=== PATIENT | male | born 1970 | race American Indian/Alaskan Native ===

== ENCOUNTER 2017-10-05 12:59 | Emergency (ER) | payer MEDICAID ==
[2017-10-05] MEDS ORDERED: BOOSTRIX IM ONE (14:32)
--- NOTE | 2017-10-05 14:39 | Emergency Department Report ---
HPI - General Time Seen by Provider: 10/05/17 14:20 - HPI HPI: Room 3 The patient is a 47-year-old male presenting with a chief complaint of fall and facial injury. [facility] Staff reports that they heard the patient fall and found him with an injury to his nose. The patient was sent to the ED for evaluation. Patient acknowledged neck pain to nursing. Patient does not communicate verbally but always shakes or nods his head Location: [See above] Duration: [See above] Quality: Unknown Severity: Moderate Modifying factors: [see above] Context: [see above] Mode of transportation: [not driving] ED Past Medical Hx - Past Medical History Hx Psychiatric Treatment: Yes (schizophrenia, anxiety) Additional medical history: Cardiac arrest, anoxic brain injury, encephalopathy , cognitive communication deficit - Family History Family history: no significant - Social History Smoking Status: Never Smoker Substance Use Type: None - Medications Home Medications: Home Medications Medication Instructions Recorded Confirmed Last Taken Type traMADol [Ultram] 50 mg PO Q6HR PRN #10 tablet 10/05/17 Unknown Rx ED Review of Systems ROS: Stated complaint: FALL/NOSE LACERATION Other details as noted in HPI Comment: Unobtainable due to pts medical conditions Physical Exam - Physical Exam Physical Exam: GENERAL: The patient is well-developed well-nourished male sitting on stretcher with dressing to nose not appear to be in acute distress. [] HEENT: Normocephalic. Approximately 1 cm tangential/shearing curvilinear laceration to the left naris. Extraocular motions are intact. Patient has moist mucous membranes. NECK: Supple. No axial step offs CHEST/LUNGS: Clear to auscultation. There is no respiratory distress noted. HEART/CARDIOVASCULAR: Regular. There is no tachycardia. There is no gallop rub or murmur. ABDOMEN: Abdomen is soft, nontender. Patient has normal bowel sounds. There is no abdominal distention. SKIN: There is no rash. There is no edema. There is no diaphoresis. NEURO: The patient is awake. The patient has cognitive communication deficits so they does not respond verbally. gait. MUSCULOSKELETAL: There is no limitation range of motion. - Laceration /Wound Repair Left Nose Wound Location: face Wound Length (cm): 1 Wound's Depth, Shape: irregular Wound Explored: clean Betadine Prep?: No Wound Repaired With: Dermabond Sterile Dressing Applied?: No Progress: Wound cleaned and prepped with hydrogen peroxide ED Medical Decision Making - Radiology Data Radiology results: report reviewed (CT head, CT cervical spine, CT facial bones) , image reviewed (CT head, CT cervical spine, CT facial bones) [address] [address] Cat Scan Report Signed Patient: TRUPTI LINCOLN MR#: [id number] : 1970 Acct:[id number] Age/Sex: 47 / M ADM Date: 10/05/17 Loc: ED Attending Dr: Ordering Physician: TYSHAWN SAENZ MD Date of Service: 10/05/17 Procedure(s): CT head/brain wo con Accession Number(s): [id number] cc: TYSHAWN SAENZ MD FINAL REPORT EXAM: CT HEAD/BRAIN WO CON HISTORY: head injury after fall TECHNIQUE: Routine axial imaging was obtained of the brain without IV contrast. There are no previous studies available for comparison. FINDINGS: There is volume loss in the posterior fossa. There is no evidence of acute stroke or hemorrhage. The ventricular system is symmetric in size. There is no evidence of skull fracture or scalp injury. The visualized sinuses are clear. The mastoid air cells are well pneumatized. IMPRESSION: Nonspecific volume loss in the posterior fossa. No acute intracranial process. Transcribed By: RB Dictated By: TRUPTI DOMINGO MD Electronically Authenticated By: TRUPTI DOMINGO MD Signed Date/Time: 10/05/171533 DD/ 33 TD/TT: 10/05/[address] [address] Cat Scan Report Signed Patient: TRUPTI LINCOLN MR#: [id number] : 1970 Acct:[id number] Age/Sex: 47 / M ADM Date: 10/05/17 Loc: ED Attending Dr: Ordering Physician: TYSHAWN SAENZ MD Date of Service: 10/05/17 Procedure(s): CT facial bones wo con Accession Number(s): [id number] cc: TYSHAWN SAENZ MD FINAL REPORT EXAM: CT FACIAL BONES WO CON HISTORY: head injury after fall TECHNIQUE: Routine axial imaging was obtained of the facial bones without IV contrast with sagittal and coronal reconstructions. FINDINGS: The orbital rims and floors appear intact. The nasal bones and zygomatic arches appear intact. The mandible shows no evidence of acute injury. The visualized sinuses are clear. The intraorbital structures do not show any acute changes. The soft tissues otherwise are unremarkable. IMPRESSION: Within normal limits. Transcribed By: DESMOND Dictated By: TRUPTI DOMINGO MD Electronically Authenticated By: TRUPTI DOMINGO MD Signed Date/Time: 10/05/171531 DD/ 31 TD/TT: 10/05/171531 [facility] [address] [address] Cat Scan Report Signed Patient: TRUTPI LINCOLN MR#: [id number] : 1970 Acct:[id number] Age/Sex: 47 / M ADM Date: 10/05/17 Loc: ED Attending Dr: Ordering Physician: TYSHAWN SAENZ MD Date of Service: 10/05/17 Procedure(s): CT cervical spine wo con Accession Number(s): [id number] cc: TYSHAWN SAENZ MD FINAL REPORT PROCEDURE: CT CERVICAL SPINE WO CON TECHNIQUE: Computerized tomography of the cervical spine was performed from the skull base to T1 without contrast material. HISTORY: pain after fall COMPARISON: No prior studies are available for comparison. FINDINGS: There are degenerative disc changes predominantly from C3-4 through C6-7, with disc space narrowing and osteophyte formation. No acute fracture or subluxation is seen. IMPRESSION: No acute fracture or subluxation is identified. Transcribed By: [facility] Dictated By: AIME PEREZ M.D. Electronically Authenticated By: AIME PEREZ M.D. Signed Date/Time: 10/05/171637 DD/ 37 TD/TT: 10/05/171637 - Differential Diagnosis closed head injury, ICH, cervical fracture, nose laceration Critical care attestation.: If time is entered above; I have spent that time in minutes in the direct care of this critically ill patient, excluding procedure time. ED Disposition Clinical Impression: Closed head injury, Cervical strain, acute, Laceration of nose Disposition: -01 TO HOME OR SELFCARE Is pt being admited?: No Does the pt Need Aspirin: No Condition: Stable Instructions: Skin Adhesive Care (ED), Laceration (ED) Additional Instructions: Return to the emergency department immediately should you develop worsening symptoms, fever, inability to tolerate food or liquid or any other concerns. Prescriptions: traMADol [Ultram] 50 mg PO Q6HR PRN #10 tablet PRN Reason: Pain Referrals: JUAN BA MD [Primary Care Provider] - 3-5 Days Time of Disposition: 17:21
--- NOTE | 2017-10-05 15:37 | Cat Scan Report ---
FINAL REPORT EXAM: CT FACIAL BONES WO CON HISTORY: head injury after fall TECHNIQUE: Routine axial imaging was obtained of the facial bones without IV contrast with sagittal and coronal reconstructions. FINDINGS: The orbital rims and floors appear intact. The nasal bones and zygomatic arches appear intact. The mandible shows no evidence of acute injury. The visualized sinuses are clear. The intraorbital structures do not show any acute changes. The soft tissues otherwise are unremarkable. IMPRESSION: Within normal limits.
--- NOTE | 2017-10-05 15:39 | Cat Scan Report ---
FINAL REPORT EXAM: CT HEAD/BRAIN WO CON HISTORY: head injury after fall TECHNIQUE: Routine axial imaging was obtained of the brain without IV contrast. There are no previous studies available for comparison. FINDINGS: There is volume loss in the posterior fossa. There is no evidence of acute stroke or hemorrhage. The ventricular system is symmetric in size. There is no evidence of skull fracture or scalp injury. The visualized sinuses are clear. The mastoid air cells are well pneumatized. IMPRESSION: Nonspecific volume loss in the posterior fossa. No acute intracranial process.
[2017-10-05] MEDS ORDERED: HYDROGEN PEROXIDE ONE (16:09)
--- NOTE | 2017-10-05 16:44 | Cat Scan Report ---
FINAL REPORT PROCEDURE: CT CERVICAL SPINE WO CON TECHNIQUE: Computerized tomography of the cervical spine was performed from the skull base to T1 without contrast material. HISTORY: pain after fall COMPARISON: No prior studies are available for comparison. FINDINGS: There are degenerative disc changes predominantly from C3-4 through C6-7, with disc space narrowing and osteophyte formation. No acute fracture or subluxation is seen. IMPRESSION: No acute fracture or subluxation is identified.
[2017-10-05 18:55] VITALS: BP 165/104
[2017-10-05] MEDS ORDERED: HYDROGEN PEROXIDE TP ONE (18:55)
== END 2017-10-05 19:39 | disposition home or self-care (01) ==
LOC: ED 12:59
DX: S01.21XA Laceration without foreign body of nose, initial encounter (principal); S16.1XXA Strain of muscle, fascia and tendon at neck level, initial encounter; S09.8XXA Other specified injuries of head, initial encounter; F20.9 Schizophrenia, unspecified; F41.9 Anxiety disorder, unspecified; W17.89XA Other fall from one level to another, initial encounter; Y93.89 Activity, other specified; Y92.89 Other specified places as the place of occurrence of the external cause; Y99.8 Other external cause status
CPT/HCPCS: 70450; 70486; 72125; 90471; 90715

== ENCOUNTER 2019-07-24 19:47 | Emergency (ER) | payer MEDICAID ==
[2019-07-24 21:22] LABS: Basophils # (Auto) 0.1 K/mm3 (0.0-0.1); Basophils % (Auto) 0.5 % (0.0-1.8); Eosinophils # (Auto) 0.2 K/mm3 (0.0-0.4); Eosinophils % (Auto) 1.6 % (0.0-4.3); Lymphocytes # (Auto) 2.7 K/mm3 (1.2-5.4); Lymphocytes % (Auto) 20.1 % (13.4-35.0); Mean Corpuscular HGB Conc 31 % (32-34); Mean Corpuscular Volume 73 fl (84-94); Monocytes # (Auto) 1.3 K/mm3 (0.0-0.8); Monocytes % (Auto) 9.7 % (0.0-7.3); Platelet Count 339 K/mm3 (140-440); Red Blood Count 5.92 M/mm3 (3.65-5.03); Red Cell Distribution Width 14.9 % (13.2-15.2)
[2019-07-24 21:25] LABS: Hematocrit 43.4 % (35.5-45.6); Hemoglobin 13.3 gm/dl (11.8-15.2)
[2019-07-24 21:58] LABS: Alanine Aminotransferase 29 units/L (7-56); Albumin 3.6 g/dL (3.9-5); BUN/Creatinine Ratio 14; Blood Urea Nitrogen 14 mg/dL (9-20)
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
[2019-07-25 19:37] LABS: Amphetamine Screen,Urine PRESUMPTIVE NEGATIVE; Benzodiazepines Screen,Urine PRESUMPTIVE NEGATIVE; Cannabinoid Screen,Urine PRESUMPTIVE NEGATIVE; Cocaine Screen,Urine PRESUMPTIVE NEGATIVE; Methadone Screen,Urine PRESUMPTIVE NEGATIVE; Opiate Screen,Urine PRESUMPTIVE NEGATIVE
[2019-07-25] MEDS ORDERED: amLODIPine 5 MG TAB PO SCH (23:20)
[2019-07-26 12:31] VITALS: BP 146/108
== END 2019-07-26 15:02 | disposition home or self-care (01) ==
LOC: ED 19:47
DX: F20.9 Schizophrenia, unspecified (principal); I10 Essential (primary) hypertension; I25.2 Old myocardial infarction; I46.9 Cardiac arrest, cause unspecified; Z79.899 Other long term (current) drug therapy
CPT/HCPCS: 36415; 80053; 80307; 80320; 85025; G0480

== ENCOUNTER 2020-12-21 19:52 | Emergency (ER) | payer MEDICAID ==
[2020-12-21] MEDS ORDERED: ACETAMINOPHEN 325 MG TAB PO ONE (20:42)
[2020-12-21] MEDS ORDERED: SODIUM CHLORIDE 0.9% 500 ML 500 ML IV ONE (20:44)
--- NOTE | 2020-12-21 20:46 | Emergency Department Report ---
ED General Adult HPI - General Chief complaint: Fall Stated complaint: patient does not speak to me PUI?: No Time Seen by Provider: 12/21/20 20:04 Source: patient, EMS ( EMS documentation not available at time of chart di ctation ), RN notes reviewed, old records reviewed Mode of arrival: Stretcher Limitations: Other (The patient is awake. The patient follows commands. The patient is nonverbal) - History of Present Illness Initial comments: This is a 50-year-old gentleman. His primary care doctor is Dr. Juan Ba. He is currently a resident of [facility]. His past medical history is complex, including aphasia, history of COVID-19, nontraumatic subarachnoid hemorrhage, lack of coordination, stroke, dyskinesia, schizophrenia, DVT, hypothyroidism, depression, generalized weakness, cognitive communication deficit, anoxic brain injury, cardiac arrest, and anemia. The patient is nonverbal, but awake, follows commands. History obtained by speaking to nurse Beba León at patient's care facility; [phone] She indicates that the patient was found on the floor, via a presumed unwitnessed fall. This was at 630. The patient was last seen normal at 4:15 PM. The patient typically stays in bed. As per Ms. Luossa, she denies fever, change in mental status, nausea, vomiting, diarrhea, or new/different medications. He was sent to the emergency room for medical clearance for unwitnessed fall. She states that the patient is his baseline. The patient himself points to his left neck. He indicates through sign language that he is having pain there. He is not able to tell me if he is having additional pain. He is not able to describe the qualitative nature of his pain, aggravating fa ctors, relieving factors, or radiation factors. -: This evening Location: neck Radiation: other Quality: other Consistency: other Improves with: other Worsens with: other Associated Symptoms: other - Related Data Previous Rx's Medication Instructions Recorded Last Taken Type Potassium Chloride 20 meq PO QDAY #15 packet 12/21/20 Unknown Rx Allergies Allergy/AdvReac Type Severity Reaction Status Date / Time No Known Allergies Allergy Verified 12/21/20 20:20 ED Review of Systems ROS: Stated complaint: FALL Other details as noted in HPI Comment: Unobtainable due to pts medical conditions (Review of systems as per nurse Beba Simpsonoby) Constitutional: denies: fever Eyes: denies: eye discharge ENT: denies: epistaxis Respiratory: denies: cough Gastrointestinal: denies: nausea, vomiting, diarrhea Genitourinary: denies: frequency Hematological/Lymphatic: denies: easy bleeding ED Past Medical Hx - Past Medical History Previous Medical History?: Yes Hx Hypertension: Yes Hx Heart Attack/AMI: Yes Hx Deep Vein Thrombosis: Yes Hx Psychiatric Treatment: Yes (schizophrenia, anxiety) Additional medical history: Cardiac arrest, anoxic brain injury, encephalopathy, cognitive communication deficit - Surgical History Past Surgical History?: No Additional Surgical History: unobtainable - Social History Smoking Status: Never Smoker - Medications Home Medications: Home Medications Medication Instructions Recorded Confirmed Last Taken Type Potassium Chloride 20 meq PO QDAY #15 packet 12/21/20 Unknown Rx ED Physical Exam - General Limitations: Other (The patient is awake. The patient is nonverbal. The patient moves 4 extremities.) General appearance: in no apparent distress - Head Head exam: Present: atraumatic, normocephalic - Eye Eye exam: Present: normal appearance, PERRL, EOMI. Absent: nystagmus - ENT ENT exam: Present: normal exam, normal orophraynx, mucous membranes moist, TM's normal bilaterally, normal external ear exam - Neck Neck exam: Present: normal inspection, full ROM, other (There is left-sided muscular paracervical tenderness) - Respiratory Respiratory exam: Present: normal lung sounds bilaterally. Absent: respiratory distress, wheezes, rales, rhonchi, stridor, decreased breath sounds - Cardiovascular Cardiovascular Exam: Present: normal rhythm, tachycardia, normal heart sounds. Absent: bradycardia, irregular rhythm, systolic murmur, diastolic murmur, rubs, gallop - GI/Abdominal GI/Abdominal exam: Present: soft. Absent: distended, tenderness, guarding, rebound, rigid, pulsatile mass - Rectal Rectal exam: Present: deferred - Extremities Exam Extremities exam: Present: normal inspection, full ROM, other (2+ pulses noted in the bilateral upper and lower extremities. There is no palpable cord. negative Homans sign. Muscular compartments are soft. The pelvis is stable.). Absent: pedal edema, calf tenderness - Back Exam Back exam: Present: normal inspection, paraspinal tenderness. Absent: te nderness, CVA tenderness (R), CVA tenderness (L), vertebral tenderness - Neurological Exam Neurological exam: Present: other (The patient is awake. The patient follows commands. The patient moves 4 extremities. There is no facial droop.) - Skin Skin exam: Present: warm, dry, intact, normal color. Absent: rash ED Course Vital Signs 12/21/20 12/21/20 12/21/20 20:10 20:16 20:46 Temperature 98.2 F Pulse Rate 101 H Respiratory 14 19 24 Rate Blood Pressure 128/81 126/87 Blood Pressure 128/81 [Left] O2 Sat by Pulse 94 95 95 Oximetry 12/21/20 12/21/20 12/21/20 21:00 21:16 21:29 Temperature Pulse Rate 101 H Respiratory 17 19 18 Rate Blood Pressure 132/90 132/90 Blood Pressure [Left] O2 Sat by Pulse 95 96 Oximetry 12/21/20 12/21/20 21:30 22:00 Temperature Pulse Rate 98 H 86 Respiratory 15 15 Rate Blood Pressure 120/96 101/71 Blood Pressure [Left] O2 Sat by Pulse 95 97 Oximetry - Reevaluation(s) Reevaluation #1: 12/21/20 21:33 Differential diagnosis, including but not limited to: Closed head injury, cervical spine injury, anemia, pneumonia, , electrolyte derangement, medical clearance 50-year-old gentleman who is awake, moving 4 extremities, protecting his airway, minimally tachycardic, although now resolved. Laboratory studies so far unremarkable, urinalysis pending, noncontrast CT scan of the brain and cervical spine pending. While I was initially evaluating this patient, he was tachycardic, O2 sat 94%. However, with deep inspiration, this corrects to 98%. He is somewhat obese, so I suspect a component of probable obesity hypoventilation syndrome and/or obstructive sleep apnea. He does not appear to be acutely decompensated from this perspective however. Reassess after imaging studies have resulted. 12/21/20 22:41 Patient sitting comfortably in stretcher. X-ray of the chest negative for acute findings. X-ray of the pelvis negative for acute findings. O2 sat 98%. Heart rate 95 bpm. The patient denies urinary symptoms. I specifically asked the patient if he was having any burning or pain when he peed, painful urination, testicular pain, or urinary discomfort. He shook his head no. TSH reviewed and appreciated. Defer to his primary care doctor to follow this up. CT scan brain and cervical spine pending. 12/21/20 22:42 12/21/20 23:11 Vital signs have normalized. CT scan of the brain and cervical spine negative for acute findings. He remains awake and is moving 4 extremities. He is in no acute distress. Discharge back to his alf. ED Medical Decision Making - Lab Data Result diagrams: 12/21/20 20:54 12/21/20 20:54 Vital Signs 12/21/20 12/21/20 20:10 21:29 Temperature 98.2 F Pulse Rate 101 H Respiratory 14 18 Rate Blood Pressure 128/81 [Left] O2 Sat by Pulse 94 Oximetry Lab Results 12/21/20 12/21/20 12/21/20 Range/Units 20:54 20:54 20:54 WBC 10.4 (4.5-11.0) K/mm3 RBC 5.84 H (3.65-5.03) M/mm3 Hgb 13.9 (11.8-15.2) gm/dl Hct 43.0 (35.5-45.6) % MCV 74 L (84-94) fl MCH 24 L (28-32) pg MCHC 32 (32-34) % RDW 14.8 (13.2-15.2) % Plt Count 215 (140-440) K/mm3 Lymph % (Auto) 27.2 (13.4-35.0) % Cotton % (Auto) 13.7 H (0.0-7.3) % Eos % (Auto) 2.7 (0.0-4.3) % Baso % (Auto) 0.5 (0.0-1.8) % Lymph # (Auto) 2.8 (1.2-5.4) K/mm3 Cotton # (Auto) 1.4 H (0.0-0.8) K/mm3 Eos # (Auto) 0.3 (0.0-0.4) K/mm3 Baso # (Auto) 0.1 (0.0-0.1) K/mm3 Seg Neutrophils % 55.9 (40.0-70.0) % Seg Neutrophils # 5.8 (1.8-7.7) K/mm3 PT 13.1 (12.2-14.9) Sec. INR 0.93 (0.87-1.13) D-Dimer 161.27 (0-234) ng/mlDDU Sodium 138 (137-145) mmol/L Potassium 3.4 L (3.6-5.0) mmol/L Chloride 101.7 (98-107) mmol/L Carbon Dioxide 25 (22-30) mmol/L Anion Gap 15 mmol/L BUN 14 (9-20) mg/dL Creatinine 1.1 (0.8-1.3) mg/dL Estimated GFR > 60 ml/min BUN/Creatinine Ratio 13 % Glucose 110 H (75-100) mg/dL Calcium 9.5 (8.4-10.2) mg/dL Magnesium 2.10 (1.7-2.3) mg/dL Total Creatine Kinase 218 H (55-170) units/L Acetaminophen (10.0-30.0) ug/mL 12/21/20 Range/Units 20:54 WBC (4.5-11.0) K/mm3 RBC (3.65-5.03) M/mm3 Hgb (11.8-15.2) gm/dl Hct (35.5-45.6) % MCV (84-94) fl MCH (28-32) pg MCHC (32-34) % RDW (13.2-15.2) % Plt Count (140-440) K/mm3 Lymph % (Auto) (13.4-35.0) % Cotton % (Auto) (0.0-7.3) % Eos % (Auto) (0.0-4.3) % Baso % (Auto) (0.0-1.8) % Lymph # (Auto) (1.2-5.4) K/mm3 Cotton # (Auto) (0.0-0.8) K/mm3 Eos # (Auto) (0.0-0.4) K/mm3 Baso # (Auto) (0.0-0.1) K/mm3 Seg Neutrophils % (40.0-70.0) % Seg Neutrophils # (1.8-7.7) K/mm3 PT (12.2-14.9) Sec. INR (0.87-1.13) D-Dimer (0-234) ng/mlDDU Sodium (137-145) mmol/L Potassium (3.6-5.0) mmol/L Chloride (98-107) mmol/L Carbon Dioxide (22-30) mmol/L Anion Gap mmol/L BUN (9-20) mg/dL Creatinine (0.8-1.3) mg/dL Estimated GFR ml/min BUN/Creatinine Ratio % Glucose (75-100) mg/dL Calcium (8.4-10.2) mg/dL Magnesium (1.7-2.3) mg/dL Total Creatine Kinase (55-170) units/L Acetaminophen 5.0 L (10.0-30.0) ug/mL Vital Signs 12/21/20 12/21/20 12/21/20 20:10 20:16 20:46 Temperature 98.2 F Pulse Rate 101 H Respiratory 14 19 24 Rate Blood Pressure 128/81 126/87 Blood Pressure 128/81 [Left] O2 Sat by Pulse 94 95 95 Oximetry 12/21/20 12/21/20 12/21/20 21:00 21:16 21:29 Temperature Pulse Rate 101 H Respiratory 17 19 18 Rate Blood Pressure 132/90 132/90 Blood Pressure [Left] O2 Sat by Pulse 95 96 Oximetry 12/21/20 12/21/20 21:30 22:00 Temperature Pulse Rate 98 H 86 Respiratory 15 15 Rate Blood Pressure 120/96 101/71 Blood Pressure [Left] O2 Sat by Pulse 95 97 Oximetry - EKG Data -: EKG Interpreted by Me EKG shows normal: sinus rhythm Rate: tachycardia - EKG Data When compared to previous EKG there are: previous EKG unavailable 12/21/20 21:32 EKG interpreted at 21: 11 Sinus rhythm, 94 bpm. Normal axis. QTC 463 ms. Poor R progression. Motion artifact. Not a STEMI. - Radiology Data Radiology results: pending, report reviewed, image reviewed interpreted by me: 1 view x-ray of the chest, interpreted by myself, negative for acute findings. X-ray of the pelvis, interpreted by myself, negative for acute findings. CHEST 1 VIEW, 12/21/2020 8:19 PM CLINICAL INFORMATION/INDICATION: Fall. Trauma. COMPARISON: None. FINDINGS: SUPPORT DEVICES: None. HEART: The cardiac silhouette is normal in size. LUNGS/PLEURA: The lungs are clear of focal airspace disease or significant pleural effusion. ADDITIONAL FINDINGS: No additional acute findings. IMPRESSION: 1. No evidence of acute cardiopulmonary process. Signer Name: Mónica Mooney MD Signed: 12/21/2020 8:40 PM Workstation Name: [id number] EXAMINATION: Pelvic radiograph, one view, 12/21/2020 CLINICAL INFORMATION: Trauma. Fall. COMPARISON: None. FINDINGS: There is no evidence of displaced bony fracture of the pelvis on today's single view. Signer Name: Mónica Mooney MD Signed: 12/21/2020 8:52 PM Workstation Name: [id number] NDICATION: Fall with a closed head injury, now with neck pain. TECHNIQUE: CT head and cervical spine without contrast. All CT scans at this location are performed using CT dose reduction for ALARA by means of automated exposure control. COMPARISON: 10/05/2017 FINDINGS: HEAD: Intracranial: Baez-white matter differentiation is maintained. No intracranial hemorrhage. No extra axial collection.. No hydrocephalus. No herniation. Sinuses: Paranasal sinuses and mastoid air cells are essentially clear. Orbits: Globes are intact Calvarium: No acute fracture. CERVICAL: Alignment: Normal alignment. Vertebrae: No fracture. No acute vertebral body height loss. C1 and C2 are congruent. Atlantooccipital joint is maintained. Spondylolysis: Mild multilevel cervical spondylosis. Soft tissues: No prevertebral soft tissue thickening. Additional findings: No significant additional findings. IMPRESSION: 1. No acute intracranial abnormality. 2.No cervical spine fracture. Signer Name: Ramón Vega MD Signed: 12/21/2020 9:39 PM Critical care attestation.: If time is entered above; I have spent that time in minutes in the direct care of this critically ill patient, excluding procedure time. ED Disposition Clinical Impression: Fall, Cognitive communication deficit, Encounter for medical screening examination, Hypokalemia, Neck pain Disposition: DC/TX-70 ANOTHER TYPE HLTHCARE Is pt being admited?: No Does the pt Need Aspirin: No Condition: Good Additional Instructions: The patient was not found to have an emergent medical condition today that would preclude discharge back to his nursing care facility. Have your primary care doctor contact the medical records department to obtain copies of laboratory studies, radiology studies, and to follow-up on nonemergent incidental abnormal findings. Recommend that patients be monitored in such a fashion as to prevent future falls. Recommend initiating fall precautions for this patient. Please return to the emergency room right away with new pain, worsened pain, migration of pain, vomiting, change in mental status, confusion, inability to tolerate liquid feeds, new, worsened or different symptoms not present on the initial emergency room evaluation. We do recommend follow-up with your primary care doctor within the next 3 to 5 days for repeat checkup and evaluation. Prescriptions: Potassium Chloride 20 meq PO QDAY #15 packet Referrals: JUAN BA MD [Staff Physician] - 3-5 Days Time of Disposition: 23:12 (Discharge back to patient's nursing)
[2020-12-21 21:19] LABS: Basophils # (Auto) 0.1 K/mm3 (0.0-0.1); Basophils % (Auto) 0.5 % (0.0-1.8); Eosinophils # (Auto) 0.3 K/mm3 (0.0-0.4); Eosinophils % (Auto) 2.7 % (0.0-4.3); Hemoglobin 13.9 gm/dl (11.8-15.2); Lymphocytes # (Auto) 2.8 K/mm3 (1.2-5.4); Lymphocytes % (Auto) 27.2 % (13.4-35.0); Mean Corpuscular HGB Conc 32 % (32-34); Mean Corpuscular Volume 74 fl (84-94); Monocytes # (Auto) 1.4 K/mm3 (0.0-0.8); Monocytes % (Auto) 13.7 % (0.0-7.3); Platelet Count 215 K/mm3 (140-440); Red Blood Count 5.84 M/mm3 (3.65-5.03); Red Cell Distribution Width 14.8 % (13.2-15.2)
[2020-12-21] MEDS ORDERED: MIDAZOLAM 2 MG/2 ML INJ IV ONE (21:26)
[2020-12-21 21:28] LABS: INR 0.93 (0.87-1.13)
[2020-12-21 21:31] LABS: BUN/Creatinine Ratio 13; Blood Urea Nitrogen 14 mg/dL (9-20); Calcium 9.5 mg/dL (8.4-10.2); Hemolysis Index 11
[2020-12-21] MEDS ORDERED: POTASSIUM CHLORIDE ER 20 MEQ TAB PO ONE (21:38)
[2020-12-21] MEDS ORDERED: MIDAZOLAM 5 MG/5 ML INJ MDV IV ONE (21:44)
--- NOTE | 2020-12-21 21:44 | XRay Report ---
CHEST 1 VIEW, 12/21/2020 8:19 PM CLINICAL INFORMATION/INDICATION: Fall. Trauma. COMPARISON: None. FINDINGS: SUPPORT DEVICES: None. HEART: The cardiac silhouette is normal in size. LUNGS/PLEURA: The lungs are clear of focal airspace disease or significant pleural effusion. ADDITIONAL FINDINGS: No additional acute findings. IMPRESSION: 1. No evidence of acute cardiopulmonary process. Signer Name: Mónica Mooney MD Signed: 12/21/2020 9:40 PM Workstation Name: [id number]
--- NOTE | 2020-12-21 21:57 | XRay Report ---
EXAMINATION: Pelvic radiograph, one view, 12/21/2020 CLINICAL INFORMATION: Trauma. Fall. COMPARISON: None. FINDINGS: There is no evidence of displaced bony fracture of the pelvis on today's single view. Signer Name: Mónica Mooney MD Signed: 12/21/2020 9:52 PM Workstation Name: [id number]
--- NOTE | 2020-12-21 22:43 | Cat Scan Report ---
CT cervical spine wo con, CT head/brain wo con INDICATION: Fall with a closed head injury, now with neck pain. TECHNIQUE: CT head and cervical spine without contrast. All CT scans at this location are performed u sing CT dose reduction for ALARA by means of automated exposure control. COMPARISON: 10/05/2017 FINDINGS: HEAD: Intracranial: Baez-white matter differentiation is maintained. No intracranial hemorrhage. No extra a xial collection.. No hydrocephalus. No herniation. Sinuses: Paranasal sinuses and mastoid air cells are essentially clear. Orbits: Globes are intact Calvarium: No acute fracture. CERVICAL: Alignment: Normal alignment. Vertebrae: No fracture. No acute vertebral body height loss. C1 and C2 are congruent. Atlantooccipit al joint is maintained. Spondylolysis: Mild multilevel cervical spondylosis. Soft tissues: No prevertebral soft tissue thickening. Additional findings: No significant additional findings. IMPRESSION: 1. No acute intracranial abnormality. 2.No cervical spine fracture. Signer Name: Ramón Vega MD Signed: 12/21/2020 10:39 PM Workstation Name: [id number]
[2020-12-22 03:08] VITALS: BP 117/77
--- NOTE | 2020-12-23 10:29 | Electrocardiograph Report ---
[facility] Test Date: 2020-12-21 Test Time: 21:11:15 Pat Name: TRUPTI LINCOLN Department: Room: Gender: M Hat Maker: VICK : [id number] Requested By: LIANA SORIANO Order Number: [id number] Reading MD: Uriel Mancia Measurements Intervals [place] Rate: 94 P: 43 PA: 171 QRS: -2 QRSD: 93 T: 25 QT: 370 QTc: 463 Interpretive Statements Sinus rhythm Low voltage, extremity leads No previous ECG available for comparison Electronically Signed On 12-23-2020 10:28:50 EDT by Uriel Mancia
== END 2020-12-22 03:00 | disposition other institution (70) ==
LOC: ED 19:52
DX: E87.6 Hypokalemia (principal); M54.2 Cervicalgia; R41.841 Cognitive communication deficit; R51.9 Headache, unspecified; Z00.00 Encounter for general adult medical examination without abnormal findings; W19.XXXA Unspecified fall, initial encounter; Y93.89 Activity, other specified; Y92.89 Other specified places as the place of occurrence of the external cause; Y99.8 Other external cause status
CPT/HCPCS: 36415; 70450; 71045; 72125; 72170; 80048; 82550; 83735; 84443; 85025; 85379; 85610; 93005; 96361; 96374; 99285; J2250; J7040; 80320; G0480

== ENCOUNTER 2021-07-05 19:47 | Emergency (ER) | payer MEDICAID ==
[2021-07-05] MEDS ORDERED: HALOPERIDOL LACTATE 5 MG/1 ML INJ ONE (20:46)
[2021-07-05] MEDS ORDERED: LORazepam 2 MG/ML VIAL ONE (20:46)
[2021-07-05] MEDS ORDERED: LORazepam 2 MG/ML VIAL IM ONE (21:30)
[2021-07-05] MEDS ORDERED: HALOPERIDOL LACTATE 5 MG/1 ML INJ IM ONE (21:30)
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
[2021-07-05 23:58] LABS: Basophils # (Auto) 0.1 K/mm3 (0.0-0.1); Basophils % (Auto) 0.4 % (0.0-1.8); Eosinophils # (Auto) 0.1 K/mm3 (0.0-0.4); Eosinophils % (Auto) 0.7 % (0.0-4.3); Lymphocytes # (Auto) 2.3 K/mm3 (1.2-5.4); Lymphocytes % (Auto) 15.8 % (13.4-35.0); Mean Corpuscular HGB Conc 31 % (32-34); Mean Corpuscular Volume 72 fl (84-94); Monocytes # (Auto) 1.3 K/mm3 (0.0-0.8); Monocytes % (Auto) 8.9 % (0.0-7.3); Platelet Count 285 K/mm3 (140-440); Red Blood Count 6.11 M/mm3 (3.65-5.03); Red Cell Distribution Width 14.5 % (13.2-15.2)
[2021-07-06 00:07] LABS: Hematocrit 43.6 % (35.5-45.6); Hemoglobin 13.4 gm/dl (11.8-15.2)
[2021-07-06 00:16] LABS: BUN/Creatinine Ratio 15; Blood Urea Nitrogen 18 mg/dL (9-20); Hemolysis Index 9
--- NOTE | 2021-07-06 11:21 | Consultation ---
History of Present Illness - Reason for Consult Consult date: 07/06/21 Reason for consult: agitation - History of Present Psychiatric Illness The patient was seen today. He was brought to the ER for agitation and hitting staff. He has a history of TBI, developmental delay, and schizophrenia. During my evaluation of the patient he is lying quietly. He is calm, and cooperative. He is nonverbal but able to communicate with me by nodding and shaking his head. The patient motions for me to assist him in sitting up. The patient nods yes when I ask was he upset [facility] the jail. I ask did he get upset all the time, he shakes his head "no." I ask the patient was he typically a pretty calm verenice, he shakes his head "yes." He denies SI/HI or hallucinations when asked. Nursing notes states the patient has been calm and cooperative since coming to the ER. REVIEW OF SYSTEMS Unable to assess MENTAL STATUS EXAMINATION Unable to assess Assessment (1) Mood Disorder, Unspecified Treatment Plan Continue previously prescribed meds Medical: per primary Disposition: Do not recommend acute psychiatric inpatient treatment Will sign off. Thanks Case staffed with Dr. Herring Medications and Allergies Allergies Allergy/AdvReac Type Severity Reaction Status Date / Time No Known Allergies Allergy Verified 12/21/20 20:20 Home Medications Medication Instructions Recorded Confirmed Last Taken Type Potassium Chloride 20 meq PO QDAY #15 packet 12/21/20 Unknown Rx Mental Status Exam - Vital signs Last Vital Signs Temp 98.9 F 07/05/21 20:29 Pulse 128 H 07/05/21 20:29 Resp 18 07/05/21 20:29 BP 146/94 07/05/21 20:29 Pulse Ox 98 07/05/21 20:29 Results Result Diagrams: 07/05/21 23:36 07/05/21 23:36 Abnormal lab results 07/05/21 07/05/21 07/05/21 Range/Units 23:36 23:36 23:36 WBC 14.7 H (4.5-11.0) K/mm3 RBC 6.11 H (3.65-5.03) M/mm3 MCV 72 L (84-94) fl MCH 22 L (28-32) pg MCHC 31 L (32-34) % [place] % (Auto) 8.9 H (0.0-7.3) % [place] # (Auto) 1.3 H (0.0-0.8) K/mm3 Seg Neutrophils % 74.2 H (40.0-70.0) % Seg Neutrophils # 11.0 H (1.8-7.7) K/mm3 Potassium 3.4 L (3.6-5.0) mmol/L Glucose 115 H (75-100) mg/dL Salicylates < 0.3 L (2.8-20.0) mg/dL Acetaminophen (10.0-30.0) ug/mL 07/05/21 Range/Units 23:36 WBC (4.5-11.0) K/mm3 RBC (3.65-5.03) M/mm3 MCV (84-94) fl MCH (28-32) pg MCHC (32-34) % [place] % (Auto) (0.0-7.3) % [place] # (Auto) (0.0-0.8) K/mm3 Seg Neutrophils % (40.0-70.0) % Seg Neutrophils # (1.8-7.7) K/mm3 Potassium (3.6-5.0) mmol/L Glucose (75-100) mg/dL Salicylates (2.8-20.0) mg/dL Acetaminophen 5.0 L (10.0-30.0) ug/mL All other labs normal.
[2021-07-06 12:22] VITALS: BP 126/88
--- NOTE | 2021-07-06 12:22 | Event Note ---
Date: 07/06/21 The patient was evaluated in the emergency department for symptoms described in the history of present illness. He/she was evaluated in the context of the global COVID-19 pandemic, which necessitated consideration that the patient might be at risk for infection with the virus that causes COVID-19. Institutional protocols and algorithms that pertain to the evaluation of patients at risk for COVID-19 are in a state of rapid change based on information released by regulatory bodies including the CDC and federal and state organizations. These policies and algorithms were followed during the patient's care in the emergency department. Please note that these policies, procedures and recommendations changed on a rapid basis. The patient is seen and examined. He was deemed medically suitable for psychiatric evaluation during his initial ER evaluation. The psychiatric team have not recommended 1013. I went back and evaluated the patient. He denies physical pain. He denies homicidality and suicidality. He also indicates that he is not having dysuria, hematuria, frequency, testicular pain, or any urinary symptoms whatsoever. On my personal examination, with Dinamap, blood pressure 126/70 mmHg, heart rate 90 bpm, O2 sat 95% on room air, respirations 14. Discharge back to his [facility]personal long term His initial leukocytosis is likely a stress reaction, likely secondary to his agitation. However, the patient presents as calm, cooperative at this time, and he is most certainly not agitated
== END 2021-07-06 15:30 ==
LOC: ED 19:47
DX: E87.6 Hypokalemia (principal); F09 Unspecified mental disorder due to known physiological condition; I21.9 Acute myocardial infarction, unspecified; I11.9 Hypertensive heart disease without heart failure; I82.409 Acute embolism and thrombosis of unspecified deep veins of unspecified lower extremity; F41.9 Anxiety disorder, unspecified; F20.9 Schizophrenia, unspecified; Z00.8 Encounter for other general examination; Z00.00 Encounter for general adult medical examination without abnormal findings; Z98.890 Other specified postprocedural states; Z79.899 Other long term (current) drug therapy
CPT/HCPCS: 36415; 80048; 85025; 96372; 99283; J1630; J2060; 80320; G0480

== ENCOUNTER 2021-09-29 11:17 | Emergency (ER) | payer MEDICAID ==
--- NOTE | 2021-09-29 12:22 | Emergency Department Report ---
ED General Adult HPI - General Chief complaint: Psych Stated complaint: 1013 AGGRESSIVE BEHAVIOR Time Seen by Provider: 09/29/21 12:09 Source: patient, EMS (Verbal report received from emergency medical services. EMS documentation not available at time of chart dictation ), RN notes reviewed, old records reviewed Mode of arrival: Stretcher Limitations: Other (The patient is awake, follows commands, but is nonverbal.) - History of Present Illness Initial comments: Patient is a 51-year-old gentleman. I have evaluated this patient in the past. The patient is referred to the emergency room from his local half-way for psychiatric consultation and evaluation. The patient is awake, alert, follows commands. The patient denies physical pain. He specifically denies headache, neck pain, chest pain, abdominal pain, shortness of breath, homicidality, suicidality, and also denies irritative and obstructive urinary symptoms. He arrives with a signed 1013, which states "throwing chairs tables, aggressive towards staff and other residents." 1013 assigned by his physician, Dr. Jr Gastelum. This patient has a past medical history of aphasia, history of COVID-19, subarachnoid hemorrhage, lack of coordination, stroke, dyskinesia, schizophre karen, DVT, hypothyroidism, depression, generalized weakness, cognitive communication deficit, and anoxic brain injury In the emergency room, the patient indicates that he has no complaints at this time and denies physical pain. However, phlebotomy attempted to draw this patient's laboratory studies, and he became very agitated. -: unknown Severity scale (0 -10): 0 - Related Data Home Medications Medication Instructions Recorded Confirmed Last Taken Aspirin BABY CHEW TAB 81 mg PO QDAY 09/29/21 09/29/21 Unknown Citalopram 20 mg 09/29/21 Unknown Depakote Sprinkle 500 mg Q12HR 09/29/21 09/29/21 Unknown HCTZ 25 mg 09/29/21 Unknown Levothyroxine 100 mcg 09/29/21 Unknown Plavix 75 mg 09/29/21 Unknown SEROquel 125 mg Q12HR 09/29/21 09/29/21 Unknown Topiramate 50 mg Q12H 09/29/21 09/29/21 Unknown amLODIPine 10 mg 09/29/21 Unknown Allergies Allergy/AdvReac Type Severity Reaction Status Date / Time No Known Allergies Allergy Verified 09/29/21 13:09 ED Review of Systems ROS: Stated complaint: 1013 AGGRESSIVE BEHAVIOR Other details as noted in HPI Constitutional: denies: fever Respiratory: denies: shortness of breath Cardiovascular: denies: chest pain Gastrointestinal: denies: abdominal pain Genitourinary: denies: dysuria Psychiatric: denies: homicidal thoughts, suicidal thoughts ED Past Medical Hx - Past Medical History Hx Hypertension: Yes Hx Heart Attack/AMI: Yes Hx Deep Vein Thrombosis: Yes Hx Psychiatric Treatment: Yes (schizophrenia, anxiety) Additional medical history: Cardiac arrest, anoxic brain injury, encephalopathy, cognitive communication deficit - Surgical History Additional Surgical History: unobtainable - Social History Smoking Status: Never Smoker - Medications Home Medications: Home Medications Medication Instructions Recorded Confirmed Last Taken Type Aspirin BABY CHEW TAB 81 mg PO QDAY 09/29/21 09/29/21 Unknown History Citalopram 20 mg 09/29/21 Unknown History Depakote Sprinkle 500 mg Q12HR 09/29/21 09/29/21 Unknown History HCTZ 25 mg 09/29/21 Unknown History Levothyroxine 100 mcg 09/29/21 Unknown History Plavix 75 mg 09/29/21 Unknown History SEROquel 125 mg Q12HR 09/29/21 09/29/21 Unknown History Topiramate 50 mg Q12H 09/29/21 09/29/21 Unknown History amLODIPine 10 mg 09/29/21 Unknown History ED Physical Exam - General Limitations: Other (Patient is nonverbal. Patient is agitated) General appearance: in no apparent distress - Head Head exam: Present: atraumatic, normocephalic - Eye Eye exam: Present: normal appearance, EOMI. Absent: nystagmus - ENT ENT exam: Present: normal exam, normal orophraynx, mucous membranes moist, normal external ear exam - Neck Neck exam: Present: normal inspection, full ROM. Absent: tenderness, meningismus - Respiratory Respiratory exam: Present: normal lung sounds bilaterally. Absent: respiratory distress, wheezes, rales, rhonchi, stridor, decreased breath sounds - Cardiovascular Cardiovascular Exam: Present: regular rate, normal rhythm, normal heart sounds. Absent: bradycardia, tachycardia, irregular rhythm, systolic murmur, diastolic murmur, rubs, gallop - GI/Abdominal GI/Abdominal exam: Present: soft, normal bowel sounds. Absent: distended, tenderness, guarding, rebound, rigid, pulsatile mass - Rectal Rectal exam: Present: deferred - Extremities Exam Extremities exam: Present: normal inspection, full ROM, other (2+ pulses noted in the bilateral upper and lower extremities. There is no palpable cord. negative Homans sign. Muscular compartments are soft. The pelvis is stable.). Absent: pedal edema, calf tenderness - Back Exam Back exam: Present: normal inspection. Absent: tenderness, CVA tenderness (R), CVA tenderness (L), paraspinal tenderness, vertebral tenderness - Neurological Exam Neurological exam: Present: alert, other (The patient is awake. The patient moves 4 extremities. The patient is nonverbal. There is no facial droop.) - Psychiatric Psychiatric exam: Absent: homicidal ideation, suicidal ideation - Skin Skin exam: Present: warm, dry, intact, normal color. Absent: rash ED Course Vital Signs 09/29/21 11:25 Temperature 98.6 F Pulse Rate 88 Respiratory 18 Rate Blood Pressure 149/96 [Left] O2 Sat by Pulse 98 Oximetry - Reevaluation(s) Reevaluation #1: 09/29/21 12:59 Differential diagnosis, including but not limited to: Encounter for medical screening examination, encounter for behavioral health screening examination, thyroid derangement, electrolyte derangement, UTI, intracranial lesion, schi zophrenia Assessment and plan: 51-year-old gentleman, arriving 1013, with a request for psychiatric consultation and evaluation. Hold status ordered. Appropriate laboratory studies, urinalysis, noncontrast CT scan of the brain ordered. I suspect that the patient's documented agitation is likely secondary to his underlying multiple chronic psychiatric and medical comorbidities. Medically speaking he does not appear to be acutely decompensated, but we will obtain the aforementioned appropriate diagnostic studies, and reassess. He is not currently allowing for phlebotomy to draw his blood tests and does not appear to have decision-making capacity at this time. Therefore, he will be medicated with as needed haloperidol and Ativan, and we will continue with acquisition of appropriate diagnostics to evaluate for emergent medical conditions. 09/29/21 14:48 Laboratory studies are reviewed and appreciated. CT scan brain negative for acute findings. Home medications reconciled. Psychiatric consultation reviewed and appreciated. Covid swab ordered in anticipation of psychiatric request. Patient resting comfortably in stretcher, and in no acute distress. At this point in time, this patient does not appear to have immediate medical contraindication to psychiatric admission, evaluation, consultation and placement. Should the psychiatric team recommend discharge back to his half-way, the patient currently does not possess an emergent medical condition which would preclude discharge back to his half-way. ED Medical Decision Making - Lab Data Result diagrams: 09/29/21 13:53 09/29/21 13:53 Vital Signs 09/29/21 11:25 Temperature 98.6 F Pulse Rate 88 Respiratory 18 Rate Blood Pressure 149/96 [Left] O2 Sat by Pulse 98 Oximetry Labs 09/29/21 09/29/21 09/29/21 13:07 13:16 13:53 WBC RBC Hgb Hct MCV MCH MCHC RDW Plt Count Sodium 140 Potassium 3.4 L Chloride 103.5 Carbon Dioxide 26 Anion Gap 14 BUN 13 Creatinine 1.0 Estimated GFR > 60 BUN/Creatinine Ratio 13 Glucose 103 H Calcium 8.6 TSH Urine Color Yellow Urine Turbidity Clear Urine pH 7.0 Ur Specific [place] 1.019 Urine Protein <15 mg/dl Urine Glucose (UA) Neg Urine Ketones Neg Urine Blood Neg Urine Nitrite Neg Urine Bilirubin Neg Urine Urobilinogen < 2.0 Ur Leukocyte Esterase Neg Urine WBC (Auto) < 1.0 Urine RBC (Auto) 10.0 U Epithel Cells (Auto) < 1.0 Urine Mucus Few Urine Yeast (Budding) 3+ Salicylates Urine Opiates Screen Negative Urine Methadone Screen Negative Acetaminophen Ur Barbiturates Screen Negative Valproic Acid Ur Phencyclidine Scrn Negative Ur Amphetamines Screen Negative U Benzodiazepines Scrn Negative Urine Cocaine Screen Negative U Marijuana (THC) Screen Negative Drugs of Abuse Note Disclamer Plasma/Serum Alcohol 09/29/21 09/29/21 09/29/21 13:53 13:53 13:53 WBC 10.0 RBC 5.97 H Hgb 13.5 Hct 42.4 MCV 71 L MCH 23 L MCHC 32 RDW 15.6 H Plt Count 278 Sodium Potassium Chloride Carbon Dioxide Anion Gap BUN Creatinine Estimated GFR BUN/Creatinine Ratio Glucose Calcium TSH Urine Color Urine Turbidity Urine pH Ur Specific [place] Urine Protein Urine Glucose (UA) Urine Ketones Urine Blood Urine Nitrite Urine Bilirubin Urine Urobilinogen Ur Leukocyte Esterase Urine WBC (Auto) Urine RBC (Auto) U Epithel Cells (Auto) Urine Mucus Urine Yeast (Budding) Salicylates < 0.3 L Urine Opiates Screen Urine Methadone Screen Acetaminophen 5.0 L Ur Barbiturates Screen Valproic Acid 22.4 L Ur Phencyclidine Scrn Ur Amphetamines Screen U Benzodiazepines Scrn Urine Cocaine Screen U Marijuana (THC) Screen Drugs of Abuse Note Plasma/Serum Alcohol 09/29/21 09/29/21 13:53 13:53 WBC RBC Hgb Hct MCV MCH MCHC RDW Plt Count Sodium Potassium Chloride Carbon Dioxide Anion Gap BUN Creatinine Estimated GFR BUN/Creatinine Ratio Glucose Calcium TSH 5.210 H Urine Color Urine Turbidity Urine pH Ur Specific [place] Urine Protein Urine Glucose (UA) Urine Ketones Urine Blood Urine Nitrite Urine Bilirubin Urine Urobilinogen Ur Leukocyte Esterase Urine WBC (Auto) Urine RBC (Auto) U Epithel Cells (Auto) Urine Mucus Urine Yeast (Budding) Salicylates Urine Opiates Screen Urine Methadone Screen Acetaminophen Ur Barbiturates Screen Valproic Acid Ur Phencyclidine Scrn Ur Amphetamines Screen U Benzodiazepines Scrn Urine Cocaine Screen U Marijuana (THC) Screen Drugs of Abuse Note Plasma/Serum Alcohol < 0.01 - Radiology Data Radiology results: report reviewed, image reviewed CT head/brain wo con INDICATION / CLINICAL INFORMATION: 51 years Male; Aggressive behavior, changes in behavior. TECHNIQUE: Routine CT head without contrast. All CT scans at this location are performed using CT dose reduction for ALARA by means of automated exposure control. Motion artifact COMPARISON: 12/21/2020 FINDINGS: BRAIN / INTRACRANIAL CONTENTS: No acute hemorrhage, mass effect, midline shift, hydrocephalus, or acute, large territorial infarct. Asymmetrically prominent cerebellar atrophy seen, when compared with the degree of cerebral atrophy present. Would question chronic EtOH usage, chronic antiseizure medication, or primary cerebellar degeneration. Minimal, nonspecific white matter disease suggested. CRANIOCERVICAL JUNCTION: No significant abnormality. ORBITS: No significant abnormality of visualized orbits. SINUSES / MASTOIDS: Visualized paranasal sinuses and mastoid air cells are essentially clear. ADDITIONAL FINDINGS: None. IMPRESSION: 1. No focal mass, hemorrhage, hydrocephalus, or acute, large territorial infarct. Signer Name: Bhupinder Conteh MD, III Signed: 09/29/2021 12:44 PM Workstation Name: [id number] Critical care attestation.: If time is entered above; I have spent that time in minutes in the direct care of this critically ill patient, excluding procedure time. ED Disposition Clinical Impression: Medical clearance for psychiatric admission, Encounter for behavioral health sc reening, Encounter for medical screening examination, Hypokalemia, Behavioral change Disposition: [facility] Is pt being admited?: No Does the pt Need Aspirin: No Condition: Good Referrals: JR GASTELUM MD [Primary Care Provider] - 3-5 Days
[2021-09-29] MEDS ORDERED: HALOPERIDOL LACTATE 5 MG/1 ML INJ IM PRN (12:57)
[2021-09-29] MEDS ORDERED: LORazepam 2 MG/ML VIAL IM PRN (12:57)
[2021-09-29 13:47] LABS: Bilirubin,Urine NEG (Negative); Blood,Urine NEG (Negative); Color,Urine Yellow (Yellow); Mucus,Urine FEW /HPF; Protein,Urine <15 mg/dL mg/dL (Negative); Urobilinogen,Urine < 2.0 mg/dL (<2.0); WBC,Urine < 1.0 /HPF (0.0-6.0)
--- NOTE | 2021-09-29 13:49 | Cat Scan Report ---
CT head/brain wo con INDICATION / CLINICAL INFORMATION: 51 years Male; Aggressive behavior, changes in behavior. TECHNIQUE: Routine CT head without contrast. All CT scans at this location are performed using CT dos e reduction for ALARA by means of automated exposure control. Motion artifact COMPARISON: 12/21/2020 FINDINGS: BRAIN / INTRACRANIAL CONTENTS: No acute hemorrhage, mass effect, midline shift, hydrocephalus, or acu te, large territorial infarct. Asymmetrically prominent cerebellar atrophy seen, when compared with the degree of cerebral atrophy p resent. Would question chronic EtOH usage, chronic antiseizure medication, or primary cerebellar dege neration. Minimal, nonspecific white matter disease suggested. CRANIOCERVICAL JUNCTION: No significant abnormality. ORBITS: No significant abnormality of visualized orbits. SINUSES / MASTOIDS: Visualized paranasal sinuses and mastoid air cells are essentially clear. ADDITIONAL FINDINGS: None. IMPRESSION: 1. No focal mass, hemorrhage, hydrocephalus, or acute, large territorial infarct. Signer Name: Bhupinder Conteh MD, III Signed: 09/29/2021 1:44 PM Workstation Name: [id number]
[2021-09-29 13:50] LABS: Amphetamine Screen,Urine Negative; Benzodiazepines Screen,Urine Negative; Cannabinoid Screen,Urine Negative; Cocaine Screen,Urine Negative; Methadone Screen,Urine Negative; Opiate Screen,Urine Negative
[2021-09-29 14:15] LABS: Hematocrit 42.4 % (35.5-45.6); Hemoglobin 13.5 gm/dl (11.8-15.2); Mean Corpuscular HGB Conc 32 % (32-34); Mean Corpuscular Volume 71 fl (84-94); Platelet Count 278 K/mm3 (140-440); Red Blood Count 5.97 M/mm3 (3.65-5.03); Red Cell Distribution Width 15.6 % (13.2-15.2)
[2021-09-29 14:25] LABS: BUN/Creatinine Ratio 13; Blood Urea Nitrogen 13 mg/dL (9-20); Calcium 8.6 mg/dL (8.4-10.2); Hemolysis Index 6
[2021-09-29] MEDS ORDERED: POTASSIUM CHLORIDE ER 20 MEQ TAB PO ONE (14:41)
[2021-09-29] MEDS ORDERED: ACETAMINOPHEN 325 MG TAB PO PRN (14:42)
[2021-09-29] MEDS ORDERED: IBUPROFEN 400 MG TAB PO PRN (14:42)
[2021-09-29] MEDS ORDERED: TOPIRAMATE TAB 25 MG TAB PO SCH (22:00)
[2021-09-29] MEDS ORDERED: DIVALPROEX SPRINKLE 125 MG CAP PO SCH (22:00)
[2021-09-29] MEDS ORDERED: QUEtiapine 25 MG TAB PO SCH (22:00)
[2021-09-29] MEDS ORDERED: QUEtiapine 100 MG TAB PO SCH ×2 (22:00)
[2021-09-30] MEDS ORDERED: LEVOTHYROXINE 112 MCG TAB PO SCH (06:00)
[2021-09-30] MEDS ORDERED: LEVOTHYROXINE 100 MCG TAB PO SCH (06:00)
[2021-09-30] MEDS ORDERED: CLOPIDOGREL 75 MG TAB PO SCH (10:00)
[2021-09-30] MEDS ORDERED: amLODIPine 5 MG TAB PO SCH (10:00)
[2021-09-30] MEDS ORDERED: hydroCHLOROthiazide 25 MG TAB PO SCH (10:00)
[2021-09-30] MEDS ORDERED: CITALOPRAM 20 MG TAB PO SCH (10:00)
[2021-09-30] MEDS ORDERED: MULTIVITAMINS ,THERAPEUTIC TAB PO SCH (10:00)
[2021-09-30] MEDS ORDERED: ASPIRIN 81 MG TAB CHEW PO SCH (10:00)
[2021-09-30] MEDS ORDERED: POTASSIUM CHLORIDE ER 20 MEQ TAB PO SCH (10:00)
--- NOTE | 2021-09-30 10:16 | Consultation ---
History of Present Illness - Reason for Consult Consult date: 09/30/21 Reason for consult: aggressive behavior - History of Present Psychiatric Illness ED Note: Patient is a 51-year-old gentleman. I have evaluated this patient in the past. The patient is referred to the emergency room [facility] his local [facility] for psychiatric consultation and evaluation. The patient is awake, alert, follows commands. The patient denies physical pain. He specifically denies headache, neck pain, chest pain, abdominal pain, shortness of breath, homicidality, suicidality, and also denies irritative and obstructive urinary symptoms. He arrives with a signed 1013, which states "throwing chairs tables, aggressive towards staff and other residents." The patient is a 51 year old male with history of schizophrenia and depression. In my encounter with the patient, he is calm, alert and follows command but nonverbal. The patient denies any current suicidal/homicidal ideation and denies hallucinations. No aggressive behaviors reported. PAST PSYCHIATRIC HISTORY: Unable to assess PAST MEDICAL HISTORY: None reported or document Family Psychiatric History: None reported or documented SOCIAL HISTORY Unable to assess REVIEW OF SYSTEMS Unable to assess MENTAL STATUS EXAMINATION Unable to assess Assessment and Plan (1) Hx of Schizophrenia Treatment Plan DC 1013 Continue home meds Sitter: per primary Medical: per primary Disposition: Do not recommend acute psychiatric inpatient treatment. Senior Finance Manager will provide patient with psychiatric out patient resources. Will sign off. Thanks Case staffed with Dr. Herring ED Note: Medications and Allergies Allergies Allergy/AdvReac Type Severity Reaction Status Date / Time No Known Allergies Allergy Verified 09/29/21 13:09 Home Medications Medication Instructions Recorded Confirmed Last Taken Type Aspirin BABY CHEW TAB 81 mg PO QDAY 09/29/21 09/29/21 Unknown History Citalopram 20 mg 09/29/21 Unknown History Depakote Sprinkle 500 mg Q12HR 09/29/21 09/29/21 Unknown History HCTZ 25 mg 09/29/21 Unknown History Levothyroxine 100 mcg 09/29/21 Unknown History Plavix 75 mg 09/29/21 Unknown History SEROquel 125 mg Q12HR 09/29/21 09/29/21 Unknown History Topiramate 50 mg Q12H 09/29/21 09/29/21 Unknown History amLODIPine 10 mg 09/29/21 Unknown History Active Meds: Active Medications Acetaminophen (Acetaminophen 325 Mg Tab) 325 mg PO Q6HR PRN PRN Reason: Pain , Severe (7-10) Amlodipine Besylate (Amlodipine 5 Mg Tab) 10 mg PO QDAY [facility] Aspirin (Aspirin 81 Mg Tab Chew) 81 mg PO QDAY [facility] Citalopram Hydrobromide (Citalopram 20 Mg Tab) 20 mg PO QDAY [facility] Clopidogrel Bisulfate (Clopidogrel 75 Mg Tab) 75 mg PO QDAY [facility] Divalproex Sodium (Divalproex Sprinkle 125 Mg Cap) 500 mg PO BID [facility] Haloperidol Lactate (Haloperidol Lactate 5 Mg/1 Ml Inj) 5 mg IM Q6HR PRN PRN Reason: Agitation Last Admin: 09/29/21 13:18 Dose: 5 mg Hydrochlorothiazide (Hydrochlorothiazide 25 Mg Tab) 25 mg PO QDAY [facility] Ibuprofen (Ibuprofen 400 Mg Tab) 400 mg PO Q6HR PRN PRN Reason: Pain , Severe (7-10) Levothyroxine Sodium (Levothyroxine 100 Mcg Tab) 100 mcg PO DAILY@0600 [facility] Lorazepam (Lorazepam 2 Mg/Ml Vial) 2 mg IM Q4HR PRN PRN Reason: Agitation Last Admin: 09/29/21 13:18 Dose: 2 mg Multivitamins (Multivitamins ,Therapeutic Tab) 1 each PO QDAY [facility] Potassium Chloride (Potassium Chloride Er 20 Meq Tab) 20 meq PO QDAY [facility] Quetiapine Fumarate (Quetiapine 100 Mg Tab) 100 mg PO BID [facility] Quetiapine Fumarate (Quetiapine 25 Mg Tab) 25 mg PO BID [facility] Topiramate (Topiramate Tab 25 Mg Tab) 50 mg PO Q12HR [facility] Mental Status Exam - Vital signs Last Vital Signs Temp 98.6 F 09/29/21 11:25 Pulse 88 09/29/21 11:25 Resp 18 09/29/21 11:25 BP 149/96 09/29/21 11:25 Pulse Ox 98 09/29/21 11:25 Results Result Diagrams: 09/29/21 13:53 09/29/21 13:53 Abnormal lab results 09/29/21 09/29/21 09/29/21 Range/Units 13:53 13:53 13:53 RBC (3.65-5.03) M/mm3 MCV (84-94) fl MCH (28-32) pg RDW (13.2-15.2) % Potassium 3.4 L (3.6-5.0) mmol/L Glucose 103 H (75-100) mg/dL TSH (0.270-4.200) mlU/mL Salicylates < 0.3 L (2.8-20.0) mg/dL Acetaminophen 5.0 L (10.0-30.0) ug/mL Valproic Acid 22.4 L (50-100) ug/mL 09/29/21 09/29/21 Range/Units 13:53 13:53 RBC 5.97 H (3.65-5.03) M/mm3 MCV 71 L (84-94) fl MCH 23 L (28-32) pg RDW 15.6 H (13.2-15.2) % Potassium (3.6-5.0) mmol/L Glucose (75-100) mg/dL TSH 5.210 H (0.270-4.200) mlU/mL Salicylates (2.8-20.0) mg/dL Acetaminophen (10.0-30.0) ug/mL Valproic Acid (50-100) ug/mL All other labs normal.
--- NOTE | 2021-09-30 11:30 | Event Note ---
Date: 09/30/21 vss , no events overnioght medically cleared assessed by psych , d/c 1013, ready for D/c
[2021-09-30 15:45] VITALS: BP 155/79
== END 2021-09-30 19:30 ==
LOC: ED 11:17
DX: Z13.30 Encounter for screening examination for mental health and behavioral disorders, unspecified (principal); Z00.00 Encounter for general adult medical examination without abnormal findings; Z20.822 Contact with and (suspected) exposure to COVID-19; I10 Essential (primary) hypertension; F20.9 Schizophrenia, unspecified; Z79.899 Other long term (current) drug therapy
CPT/HCPCS: 36415; 70450; 80048; 80164; 80307; 81001; 84443; 85027; 96372; 99285; J1630; J2060; U0003; 80320; G0480

== ENCOUNTER 2021-11-07 19:15 | Emergency (ER) | payer MEDICAID ==
[2021-11-07 21:21] LABS: Basophils # (Auto) 0.1 K/mm3 (0.0-0.1); Basophils % (Auto) 0.4 % (0.0-1.8); Eosinophils # (Auto) 0.1 K/mm3 (0.0-0.4); Eosinophils % (Auto) 1.2 % (0.0-4.3); Lymphocytes # (Auto) 2.9 K/mm3 (1.2-5.4); Lymphocytes % (Auto) 23.1 % (13.4-35.0); Mean Corpuscular HGB Conc 31 % (32-34); Mean Corpuscular Volume 72 fl (84-94); Monocytes % (Auto) 7.6 % (0.0-7.3); Platelet Count 284 K/mm3 (140-440); Red Blood Count 5.91 M/mm3 (3.65-5.03)
[2021-11-07 21:25] LABS: Hematocrit 42.5 % (35.5-45.6)
[2021-11-07 21:28] LABS: BUN/Creatinine Ratio 16; Blood Urea Nitrogen 16 mg/dL (9-20); Calcium 8.9 mg/dL (8.4-10.2); Hemolysis Index 0
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
[2021-11-07 22:59] LABS: Bilirubin,Urine NEG (Negative); Blood,Urine NEG (Negative); Color,Urine Yellow (Yellow); Mucus,Urine FEW /HPF; Protein,Urine <15 mg/dL mg/dL (Negative); Urobilinogen,Urine < 2.0 mg/dL (<2.0); WBC,Urine < 1.0 /HPF (0.0-6.0)
[2021-11-07 23:07] LABS: Amphetamine Screen,Urine PRESUMPTIVE NEGATIVE; Benzodiazepines Screen,Urine PRESUMPTIVE NEGATIVE; Cannabinoid Screen,Urine PRESUMPTIVE NEGATIVE; Cocaine Screen,Urine PRESUMPTIVE NEGATIVE; Methadone Screen,Urine PRESUMPTIVE NEGATIVE; Opiate Screen,Urine PRESUMPTIVE NEGATIVE
[2021-11-08] MEDS ORDERED: HALOPERIDOL LACTATE 5 MG/1 ML INJ IM PRN (13:02)
[2021-11-08] MEDS ORDERED: LORazepam 2 MG/ML VIAL IM PRN (13:02)
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
[2021-11-09] MEDS ORDERED: NON-FORMULARY EACH (Hctz 25 MG) PO SCH (10:00)
[2021-11-09] MEDS ORDERED: NON-FORMULARY EACH (Amlodipine 10 MG) PO SCH (10:00)
[2021-11-09] MEDS ORDERED: NON-FORMULARY EACH (Levothyroxine 100 MCG) PO SCH (10:00)
[2021-11-09] MEDS ORDERED: NON-FORMULARY EACH (Aspirin Baby Chew Tab 81 MG) PO SCH (10:00)
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
[2021-11-09] MEDS: amLODIPine 10 MG TAB PO SCH (12:00)
[2021-11-09] MEDS: hydroCHLOROthiazide 25 MG TAB PO SCH (12:01)
[2021-11-09] MEDS: DIVALPROEX DR 500 MG TAB PO SCH (13:59)
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
[2021-11-09] MEDS: ASPIRIN 81 MG TAB CHEW PO SCH (19:00)
[2021-11-10] MEDS: hydroCHLOROthiazide 25 MG TAB PO SCH (11:17)
[2021-11-10] MEDS: DIVALPROEX DR 500 MG TAB PO SCH (11:17)
[2021-11-10] MEDS: ASPIRIN 81 MG TAB CHEW PO SCH (11:17)
[2021-11-10] MEDS: amLODIPine 10 MG TAB PO SCH (11:19)
--- NOTE | 2021-11-11 11:48 | Event Note ---
Date: 11/11/21 The patient has been behaving well with no behavioral issues. He is nonverbal but on my interview does not express any discomfort. He just had lunch and ate his food. We are awaiting placement for the patient.
[2021-11-11] MEDS: amLODIPine 10 MG TAB PO SCH (11:57)
[2021-11-11] MEDS: LEVOTHYROXINE 100 MCG TAB PO SCH ×2 (11:57→14:29)
[2021-11-11] MEDS: DIVALPROEX DR 500 MG TAB PO SCH ×3 (11:57→14:29)
[2021-11-11] MEDS: ASPIRIN 81 MG TAB CHEW PO SCH (11:58)
[2021-11-11] MEDS: hydroCHLOROthiazide 25 MG TAB PO SCH (11:58)
--- NOTE | 2021-11-12 10:11 | Event Note ---
Date: 11/12/21 Patient resting comfortably on stretcher, and in no acute distress, awaiting case management placement. Vital Signs 11/07/21 11/07/21 11/08/21 20:09 20:11 04:55 Temperature 99.4 F 98 F Pulse Rate 108 H 77 Respiratory 14 Rate Blood Pressure Blood Pressure 126/84 131/92 [Left] O2 Sat by Pulse 96 96 Oximetry 11/08/21 11/08/21 11/08/21 08:44 09:10 09:14 Temperature 98.2 F 98.6 F Pulse Rate 62 71 Respiratory 18 Rate Blood Pressure Blood Pressure 116/86 122/95 [Left] O2 Sat by Pulse 100 100 Oximetry 11/09/21 11/10/21 11/10/21 06:10 00:25 00:26 Temperature 98.8 F 99.1 F Pulse Rate 70 88 Respiratory 18 16 Rate Blood Pressure Blood Pressure 129/89 145/90 [Left] O2 Sat by Pulse 97 97 97 Oximetry 11/10/21 11/11/21 11/11/21 11:19 09:34 20:11 Temperature 98 F Pulse Rate 76 85 Respiratory 15 16 Rate Blood Pressure 148/83 Blood Pressure 122/72 [Left] O2 Sat by Pulse 95 98 Oximetry 11/12/21 09:24 Temperature Pulse Rate 78 Respiratory 18 Rate Blood Pressure Blood Pressure 119/74 [Left] O2 Sat by Pulse 98 Oximetry
[2021-11-12] MEDS: hydroCHLOROthiazide 25 MG TAB PO SCH (10:55)
[2021-11-12] MEDS: ASPIRIN 81 MG TAB CHEW PO SCH (10:55)
[2021-11-12] MEDS: LEVOTHYROXINE 100 MCG TAB PO SCH ×2 (10:56→11:02)
[2021-11-12] MEDS: DIVALPROEX DR 500 MG TAB PO SCH ×2 (10:56→11:02)
[2021-11-12] MEDS: amLODIPine 10 MG TAB PO SCH (11:00)
[2021-11-13] MEDS: DIVALPROEX DR 500 MG TAB PO SCH (11:23)
[2021-11-13] MEDS: LEVOTHYROXINE 100 MCG TAB PO SCH (11:24)
[2021-11-13] MEDS: hydroCHLOROthiazide 25 MG TAB PO SCH (11:24)
[2021-11-13] MEDS: ASPIRIN 81 MG TAB CHEW PO SCH (11:24)
[2021-11-13] MEDS: amLODIPine 10 MG TAB PO SCH (11:24)
[2021-11-14] MEDS: amLODIPine 10 MG TAB PO SCH (10:06)
[2021-11-14] MEDS: DIVALPROEX DR 500 MG TAB PO SCH ×3 (10:06→21:49)
[2021-11-14] MEDS: ASPIRIN 81 MG TAB CHEW PO SCH (10:07)
[2021-11-14] MEDS: hydroCHLOROthiazide 25 MG TAB PO SCH (10:07)
[2021-11-14] MEDS: LEVOTHYROXINE 100 MCG TAB PO SCH (11:12)
[2021-11-15] MEDS: amLODIPine 10 MG TAB PO SCH (10:38)
[2021-11-15] MEDS: DIVALPROEX DR 500 MG TAB PO SCH (10:38)
[2021-11-15] MEDS: hydroCHLOROthiazide 25 MG TAB PO SCH (10:39)
[2021-11-15] MEDS: LEVOTHYROXINE 100 MCG TAB PO SCH (10:39)
[2021-11-15] MEDS: ASPIRIN 81 MG TAB CHEW PO SCH (10:39)
--- NOTE | 2021-11-15 12:31 | Event Note ---
chart and vitals reviewed 51 yo male awaiting placement tolerating his home meds
[2021-11-16] MEDS: hydroCHLOROthiazide 25 MG TAB PO SCH (11:40)
[2021-11-16] MEDS: ASPIRIN 81 MG TAB CHEW PO SCH (11:41)
[2021-11-16] MEDS: DIVALPROEX DR 500 MG TAB PO SCH ×2 (11:41→22:14)
[2021-11-16] MEDS: LEVOTHYROXINE 100 MCG TAB PO SCH (11:42)
[2021-11-16] MEDS: amLODIPine 10 MG TAB PO SCH (11:42)
--- NOTE | 2021-11-16 16:02 | Emergency Department Report ---
Blank Doc - Documentation Documentation: I have reviewed patient's labs, chart. I have had a [id number] evaluation w ith the patient. Patient is awaiting placement with case management.
[2021-11-17] MEDS: ASPIRIN 81 MG TAB CHEW PO SCH (10:22)
[2021-11-17] MEDS: hydroCHLOROthiazide 25 MG TAB PO SCH (10:22)
[2021-11-17] MEDS: amLODIPine 10 MG TAB PO SCH (10:55)
[2021-11-17] MEDS: DIVALPROEX DR 500 MG TAB PO SCH ×2 (10:55→23:49)
[2021-11-17] MEDS: LEVOTHYROXINE 100 MCG TAB PO SCH (11:33)
--- NOTE | 2021-11-17 11:50 | Event Note ---
Date: 11/17/21 I saw this patient this morning and he denies any symptoms. Pt is currently waiting placement by case management.
[2021-11-19] MEDS: DIVALPROEX DR 500 MG TAB PO SCH ×2 (13:14→22:00)
[2021-11-19] MEDS: hydroCHLOROthiazide 25 MG TAB PO SCH (13:14)
[2021-11-19] MEDS: amLODIPine 10 MG TAB PO SCH (13:14)
[2021-11-19] MEDS: ASPIRIN 81 MG TAB CHEW PO SCH (13:14)
--- NOTE | 2021-11-20 11:19 | Event Note ---
Date: 11/20/21 Patient is calm and quiet with no acute event overnight. Vital signs stable. Waiting for case management placement.
[2021-11-20] MEDS: amLODIPine 10 MG TAB PO SCH (15:46)
[2021-11-20] MEDS: ASPIRIN 81 MG TAB CHEW PO SCH (15:46)
[2021-11-20] MEDS: hydroCHLOROthiazide 25 MG TAB PO SCH (15:46)
[2021-11-20] MEDS: DIVALPROEX DR 500 MG TAB PO SCH (15:46)
[2021-11-20] MEDS: LEVOTHYROXINE 100 MCG TAB PO SCH (15:49)
[2021-11-21] MEDS: amLODIPine 10 MG TAB PO SCH ×2 (11:21→11:22)
[2021-11-21] MEDS: DIVALPROEX DR 500 MG TAB PO SCH ×3 (11:22→11:29)
[2021-11-21] MEDS: ASPIRIN 81 MG TAB CHEW PO SCH ×2 (11:23→11:27)
[2021-11-21] MEDS: LEVOTHYROXINE 100 MCG TAB PO SCH ×2 (11:23→11:26)
[2021-11-21] MEDS: hydroCHLOROthiazide 25 MG TAB PO SCH ×2 (11:23→11:27)
--- NOTE | 2021-11-21 17:01 | Emergency Department Report ---
Blank Doc - Documentation Documentation: chart reviewed 51 yo male waiting case management placement. tolerating po meds
--- NOTE | 2021-11-22 13:06 | Emergency Department Report ---
Blank Doc - Documentation Documentation: I had a [id number] encounter with the patient. I have performed a chart rev iew. Patient is a 51-year-old male who is here in the emergency department. Patient is still awaiting placement with case management. We will continue to monitor.
[2021-11-23] MEDS: DIVALPROEX DR 500 MG TAB PO SCH (09:57)
[2021-11-23] MEDS: ASPIRIN 81 MG TAB CHEW PO SCH (09:58)
[2021-11-23] MEDS: hydroCHLOROthiazide 25 MG TAB PO SCH (09:58)
[2021-11-23] MEDS: amLODIPine 10 MG TAB PO SCH (09:58)
[2021-11-23] MEDS: LEVOTHYROXINE 100 MCG TAB PO SCH (10:43)
[2021-11-24] MEDS: DIVALPROEX DR 500 MG TAB PO SCH ×2 (22:47→22:50)
[2021-11-25] MEDS: amLODIPine 10 MG TAB PO SCH (09:32)
[2021-11-25] MEDS: DIVALPROEX DR 500 MG TAB PO SCH (09:33)
[2021-11-25] MEDS: ASPIRIN 81 MG TAB CHEW PO SCH (09:33)
[2021-11-25] MEDS: LEVOTHYROXINE 100 MCG TAB PO SCH (09:33)
[2021-11-25] MEDS: hydroCHLOROthiazide 25 MG TAB PO SCH (09:33)
--- NOTE | 2021-11-25 13:23 | Emergency Department Report ---
Blank Doc - Documentation Documentation: S: No events reported overnight O: Vital Signs - 8 hr 11/25/21 11/25/21 11/25/21 06:12 09:32 09:33 Temperature 98.2 F Pulse Rate 74 71 71 Respiratory 12 16 Rate Blood Pressure 121/78 Blood Pressure 144/72 121/76 [Left] O2 Sat by Pulse 96 92 Oximetry 11/25/21 12:49 Temperature Pulse Rate Respiratory Rate Blood Pressure Blood Pressure [Left] O2 Sat by Pulse 94 Oximetry A/P: Awaiting placement
[2021-11-26] MEDS: DIVALPROEX DR 500 MG TAB PO SCH ×2 (02:11→10:15)
[2021-11-26] MEDS: LEVOTHYROXINE 100 MCG TAB PO SCH (10:15)
[2021-11-26] MEDS: hydroCHLOROthiazide 25 MG TAB PO SCH (10:15)
[2021-11-26] MEDS: amLODIPine 10 MG TAB PO SCH (10:15)
[2021-11-26] MEDS: ASPIRIN 81 MG TAB CHEW PO SCH (10:15)
--- NOTE | 2021-11-26 12:38 | Emergency Department Report ---
Blank Doc - Documentation Documentation: S: No events reported overnight O: Vital Signs - 8 hr 11/26/21 08:14 Pulse Rate 77 Blood Pressure 116/72 [Left] A/P: Awaiting placement
[2021-11-27] MEDS: amLODIPine 10 MG TAB PO SCH (11:52)
[2021-11-27] MEDS: DIVALPROEX DR 500 MG TAB PO SCH (11:52)
[2021-11-27] MEDS: ASPIRIN 81 MG TAB CHEW PO SCH (11:53)
[2021-11-27] MEDS: LEVOTHYROXINE 100 MCG TAB PO SCH (11:53)
[2021-11-27] MEDS: hydroCHLOROthiazide 25 MG TAB PO SCH (11:53)
[2021-11-27] MEDS ORDERED: HALOPERIDOL LACTATE 5 MG/1 ML INJ IM PRN (15:35)
[2021-11-27] MEDS ORDERED: LORazepam 2 MG/ML VIAL IM PRN (15:41)
[2021-11-28] MEDS: DIVALPROEX DR 500 MG TAB PO SCH ×2 (05:11→10:46)
[2021-11-28] MEDS: LEVOTHYROXINE 100 MCG TAB PO SCH (08:30)
[2021-11-28] MEDS: ASPIRIN 81 MG TAB CHEW PO SCH (10:45)
[2021-11-28] MEDS: amLODIPine 10 MG TAB PO SCH (10:45)
[2021-11-28] MEDS: hydroCHLOROthiazide 25 MG TAB PO SCH (10:46)
[2021-11-29] MEDS: DIVALPROEX DR 500 MG TAB PO SCH (12:02)
[2021-11-29] MEDS: hydroCHLOROthiazide 25 MG TAB PO SCH (12:02)
[2021-11-29] MEDS: ASPIRIN 81 MG TAB CHEW PO SCH (12:02)
[2021-11-29] MEDS: amLODIPine 10 MG TAB PO SCH (12:02)
[2021-11-29] MEDS: LEVOTHYROXINE 100 MCG TAB PO SCH (12:22)
--- NOTE | 2021-11-29 16:37 | Event Note ---
Date: 11/29/21 No issues during my shift. Patient awaiting placement.
[2021-11-30] MEDS: LEVOTHYROXINE 100 MCG TAB PO SCH (08:14)
[2021-11-30] MEDS: ASPIRIN 81 MG TAB CHEW PO SCH (10:56)
[2021-11-30] MEDS: amLODIPine 10 MG TAB PO SCH (10:56)
[2021-11-30] MEDS: DIVALPROEX DR 500 MG TAB PO SCH ×3 (10:56→23:45)
[2021-11-30] MEDS: hydroCHLOROthiazide 25 MG TAB PO SCH (10:57)
--- NOTE | 2021-11-30 12:54 | Event Note ---
Date: 11/30/21 Patient seen this morning and have no complaint. Pt is observed resting comfortable on his bed. Still waiting on case management for placement.
--- NOTE | 2021-12-01 12:19 | Event Note ---
Date: 12/01/21 Pt seen and observed to be sleeping comfortable with no new event or complaint. Still waiting for placement to be arranged by the case management.
[2021-12-01] MEDS: DIVALPROEX DR 500 MG TAB PO SCH ×2 (14:00→22:00)
[2021-12-01] MEDS: hydroCHLOROthiazide 25 MG TAB PO SCH (14:00)
[2021-12-01] MEDS: amLODIPine 10 MG TAB PO SCH (14:00)
[2021-12-01] MEDS: ASPIRIN 81 MG TAB CHEW PO SCH (14:00)
[2021-12-01] MEDS: LEVOTHYROXINE 100 MCG TAB PO SCH (17:39)
--- NOTE | 2021-12-03 11:32 | Event Note ---
Date: 12/03/21 vss , no distress till awaiting ccase management for placement
[2021-12-03] MEDS: DIVALPROEX DR 500 MG TAB PO SCH (22:00)
--- NOTE | 2021-12-04 13:19 | Emergency Department Report ---
Blank Doc - Documentation Documentation: 51-year-old male still awaiting placement. Vital signs reviewed
[2021-12-05] MEDS: DIVALPROEX DR 500 MG TAB PO SCH (10:20)
[2021-12-05] MEDS: amLODIPine 10 MG TAB PO SCH (10:20)
[2021-12-05] MEDS: LEVOTHYROXINE 100 MCG TAB PO SCH (10:20)
[2021-12-05] MEDS: ASPIRIN 81 MG TAB CHEW PO SCH (10:20)
[2021-12-06] MEDS ORDERED: IBUPROFEN 800 MG TAB PO ONE (15:39)
[2021-12-06] MEDS: DIVALPROEX DR 500 MG TAB PO SCH (22:15)
[2021-12-07] MEDS: amLODIPine 10 MG TAB PO SCH (10:17)
[2021-12-07] MEDS: ASPIRIN 81 MG TAB CHEW PO SCH (10:18)
[2021-12-07 12:18] VITALS: BP 90/70
== END 2021-12-07 17:20 ==
LOC: ED 19:15 → EEVIPCON 19:15 → ED 12-07 17:20
DX: R45.1 Restlessness and agitation (principal); Z20.822 Contact with and (suspected) exposure to COVID-19; Z79.899 Other long term (current) drug therapy
CPT/HCPCS: 36415; 80048; 80307; 81001; 85025; 96372; 99284; J1630; J2060; U0003; 80320; G0480